=== PATIENT | female | born 1935 | race African-American/Black ===

== ENCOUNTER 2017-10-17 11:18 | Emergency (ER) | payer OTHER ==
[2017-10-17 11:24] VITALS: BP 151/61; PULSE 67; TEMP 98; BMI 25.3
--- NOTE | 2017-10-17 12:02 | PDOC ---
History of Present Illness - General Chief Complaint: Injury Stated Complaint: FALL/INJURY Time Seen by Provider: 10/17/17 12:00 Past History - Past Medical History Allergies/Adverse Reactions: Allergies Allergy/AdvReac Type Severity Reaction Status Date / Time No Known Allergies Allergy Verified 10/17/17 11:19 Home Medications: Ambulatory Orders Lisinopril [Prinivil] 40 mg PO BID 11/10/12 Acetaminophen [Tylenol Extra Strength] 500 mg PO PRN 07/23/13 Cholecalciferol (Vitamin D3) [Vitamin D] PO DAILY 07/23/13 Hydrocodone Bit/Acetaminophen [Vicodin 5-300mg Tablet] 1 - 2 tab PO Q4H PRN #40 tablet 07/24/13 Ibuprofen 800 mg PO TID #30 tablet 10/17/17 Anemia: No Asthma: No Cancer: No Cardiac Disorders: Yes (MILD HEART ATTACK 15-20YRS) CVA: No COPD: No CHF: No Dementia: No Diabetes: Yes (BORDERLINE - DIET CONTROLLED) GI Disorders: Yes (REFLUX;GAS) Disorders: No HTN: Yes Hypercholesterolemia: No Liver Disease: No Seizures: No Thyroid Disease: No Other medical history: sciatica, arithritis - Surgical History Abdominal Surgery: No Appendectomy: No Cardiac Surgery: No Cholecystectomy: No Lung Surgery: No Neurologic Surgery: Yes (BACK SURGERY APRIL 2013; DISCS REMOVED) Orthopedic Surgery: No - Immunization History Immunization Up to Date: Yes - Suicide/Smoking/Psychosocial Hx Smoking Status: No Smoking History: Never smoked Have you smoked in the past 12 months: No Number of Cigarettes Smoked Daily: 0 Information on smoking cessation initiated: No Hx Alcohol Use: No Drug/Substance Use Hx: No Substance Use Type: None Hx Substance Use Treatment: No *Physical Exam - Vital Signs Last Vital Signs Temp Pulse Resp BP Pulse Ox 98.0 F 67 18 151/61 100 10/17/17 11:20 10/17/17 11:20 10/17/17 11:20 10/17/17 11:20 10/17/17 11:20 *DC/Admit/Observation/Transfer Diagnosis at time of Disposition: Arthritis of foot, right, Fall (on) (from) other stairs and steps, initial encounter - Discharge Dispostion Disposition: HOME Condition at time of disposition: Good Admit: No - Referrals Referrals: Grabiel Waller MD [Primary Care Provider] - - Patient Instructions Printed Discharge Instructions: DI for Arthritis Additional Instructions: Your x-ray was negative today for any broken bones in your foot or ankle. Your x -ray did show some arthritis in the foot. This is probably what is causing all of your foot pain. Please take 800 mg of Motrin 3 times a day to help with her pain for one week. Do not take more than 3000 mg in 1 day. If your symptoms are not resolving within the week, please follow-up with orthopedics. A referral has been provided for you. Return to the emergency department if her pain gets worse, if your foot is weak if you have numbness and tingling, or if you have any changes in your symptoms. - Post Discharge Activity
[2017-10-17] MEDS ORDERED: IBUPROFEN 600 MG TABLET (FP) PO ONE ×2 (12:11→12:14)
== END 2017-10-17 13:47 | disposition home or self-care (01) ==
LOC: JERFT 11:18
DX: M25.571 Pain in right ankle and joints of right foot (principal); W10.8XXA Fall (on) (from) other stairs and steps, initial encounter; Y93.89 Activity, other specified; Y92.89 Other specified places as the place of occurrence of the external cause; Y99.8 Other external cause status; I10 Essential (primary) hypertension; E11.9 Type 2 diabetes mellitus without complications; K21.9 Gastro-esophageal reflux disease without esophagitis; M12.9 Arthropathy, unspecified
CPT/HCPCS: 73610-TC-RT; 73630-TC-RT; 99281-25

== ENCOUNTER 2017-12-12 10:37 | Emergency (ER) | payer OTHER ==
[2017-12-12 11:01] VITALS: BP 171/93; PULSE 65; TEMP 98.6; BMI 24.6
[2017-12-12] MEDS ORDERED: IBUPROFEN 400 MG TABLET (FP) PO ONE ×2 (13:09→13:15)
--- NOTE | 2017-12-12 13:13 | PDOC ---
History of Present Illness - General Chief Complaint: Pain Stated Complaint: FINGERS (LT/RT) PAIN Time Seen by Provider: 12/12/17 12:58 History Source: Patient Exam Limitations: No Limitations - History of Present Illness Initial Comments: 12/12/17 13:10 She came for evaluation of tingling and tenderness to all digits both hands for over a month. was at the [facility] and hands hurt too much to have any nail treatment performed today. Was concerned about fungal infectio. Denies recent exercise changes, any heavy lifting or strenuous activity, denies any trauma to either hands. Has had a carpal tunnel surgery on left wrist many years ago and suffers from osteoarthritis and tendinitis frequently. was seen by Dr. Trejo last week but did not mention the tenderness to her fingersshe felt would probably resolve on its own. Occurred: reports: just prior to arrival Severity: reports: mild, moderate Pain Location: reports: upper extremity (bilateral fingers ) Method of Injury: Yes: unknown Modifying Factors: improves with: None Loss of Consciousness: no loss of consciousness Associated Symptoms (Fall): denies symptoms Past History - Travel Traveled outside of the country in the last 30 days: No Close contact w/someone who was outside of country & ill: No - Past Medical History Allergies/Adverse Reactions: Allergies Allergy/AdvReac Type Severity Reaction Status Date / Time No Known Allergies Allergy Verified 12/12/17 10:56 Home Medications: Ambulatory Orders Lisinopril [Prinivil] 40 mg PO BID 11/10/12 Acetaminophen [Tylenol Extra Strength] 500 mg PO PRN 07/23/13 Cholecalciferol (Vitamin D3) [Vitamin D] PO DAILY 07/23/13 Hydrocodone Bit/Acetaminophen [Vicodin 5-300mg Tablet] 1 - 2 tab PO Q4H PRN #40 tablet 07/24/13 Ibuprofen 800 mg PO TID #30 tablet 10/17/17 Anemia: No Asthma: No Cancer: No Cardiac Disorders: Yes (MILD HEART ATTACK 15-20YRS) CVA: No COPD: No CHF: No Dementia: No Diabetes: Yes (BORDERLINE - DIET CONTROLLED) GI Disorders: Yes (REFLUX;GAS) Disorders: No HTN: Yes Hypercholesterolemia: No Liver Disease: No Seizures: No Thyroid Disease: No - Surgical History Abdominal Surgery: No Appendectomy: No Cardiac Surgery: No Cholecystectomy: No Lung Surgery: No Neurologic Surgery: Yes (BACK SURGERY APRIL 2013; DISCS REMOVED) Orthopedic Surgery: No - Immunization History Immunization Up to Date: Yes - Suicide/Smoking/Psychosocial Hx Smoking Status: No Smoking History: Never smoked Have you smoked in the past 12 months: No Number of Cigarettes Smoked Daily: 0 Hx Alcohol Use: No Drug/Substance Use Hx: No Substance Use Type: None Hx Substance Use Treatment: No Trauma Specific PMHX - Complaint Specific PMHX Back Injury: No Neck Injury: No Review of Systems - Review of Systems Able to Perform ROS?: Yes Is the patient limited Polish proficient: Yes Constitutional: Yes: See HPI. No: Symptoms Reported, Chills, Fever, Malaise ABD/GI: No: Symptoms Reported Integumentary: Yes: Symptoms Reported, See HPI, Other (fingertips, concerned about lines in nails) *Physical Exam - Vital Signs Last Vital Signs Temp Pulse Resp BP Pulse Ox 98.6 F 65 19 171/93 100 12/12/17 10:56 12/12/17 10:56 12/12/17 10:56 12/12/17 10:56 12/12/17 10:56 - Physical Exam General Appearance: Yes: Nourished, Appropriately Dressed. No: Apparent Distress HEENT: positive: PRIYA, Normal ENT Inspection, TMs Normal, Pharynx Normal Neck: negative: Tender Respiratory/Chest: positive: Normal Breath Sounds Extremity: positive: Normal Capillary Refill, Normal Inspection, Normal Range of Motion, Other (no nail lesions or fungal infections, noticed 1 brown vertical line to left third digit fingernail. No obvious onychomycosis or other infestations noted patient has full range of motion all fingers, capillary refill is brisk, no evidence of petechiae or ecchymoses. Neurovascular appears intact) Integumentary: positive: Warm Neurologic: positive: sagger preparer II-XII NML intact, Fully Oriented, Alert, Normal Mood/ Affect, Normal Response, Motor Strength 5/5 Progress Note - Progress Note Progress Note: Possible peripheral neuropathy progressing. Will refer to PMD for further evaluation and possible treatment/medication. *DC/Admit/Observation/Transfer Diagnosis at time of Disposition: Peripheral neuropathy - Discharge Dispostion Disposition: HOME Condition at time of disposition: Stable Admit: No - Referrals Referrals: Nas Waller MD [Primary Care Provider] - - Patient Instructions Printed Discharge Instructions: Peripheral Neuropathy Additional Instructions: Rest, ice to area on and off for 15 minutes 4-6 times a day Avoid heavy lifting or exercise until pain and swelling is resolved or until further directed Keep area highly elevated to reduce swelling Use splints/Allan wrap as directed Followup with orthopedist in one to 2 days if not improving, if significantly improved may wait one week for followup with orthopedist May use ibuprofen 2-200 mg tablets every 6 hours as needed for pain - Post Discharge Activity
== END 2017-12-12 13:20 | disposition home or self-care (01) ==
LOC: JERFT 10:37
DX: G62.89 Other specified polyneuropathies (principal); I10 Essential (primary) hypertension; E11.9 Type 2 diabetes mellitus without complications; K21.9 Gastro-esophageal reflux disease without esophagitis; I25.2 Old myocardial infarction
CPT/HCPCS: 99281-25

== ENCOUNTER 2021-05-14 04:41 | Day surgery (SDC) | payer OTHER ==
[2021-05-13 13:45] VITALS: BMI 23.0
[2021-05-14] MEDS ORDERED: LIDOCAINE HCL/PF 1% SDV 5ML VIAL ONE ×2 (07:25→07:46)
[2021-05-14] MEDS ORDERED: BUPIVACAINE HCL/PF 0.75% 10 ML VIAL ONE (07:26)
[2021-05-14] MEDS ORDERED: IOHEXOL 180 MG/1 ML ML IJ ONE ×2 (12:34)
[2021-05-14] MEDS ORDERED: LIDOCAINE HCL 1% PRESERVATIVE FREE - 30ML VIAL IJ ONE ×2 (12:34)
[2021-05-14] MEDS ORDERED: BUPIVACAINE HCL/PF 0.75% 10 ML VIAL NR ONE ×2 (12:34)
[2021-05-14 13:14] VITALS: BP 145/67; PULSE 59
[2021-05-14 14:25] VITALS: TEMP 97.2
== END 2021-05-14 14:00 | disposition home or self-care (01) ==
LOC: JASU-SURG 04:41
PROVIDERS: ATTEND Pain Medicine Pain Medicine
PROC: BR16YZZ Fluoroscopy of Lumbar Facet Joint(s) using Other Contrast (ICD-10-PCS; 2021-05-14)
PROC: 3E0T3BZ Introduction of Anesthetic Agent into Peripheral Nerves and Plexi, Percutaneous Approach (ICD-10-PCS; principal; 2021-05-14 11:45)
DX: M47.816 Spondylosis without myelopathy or radiculopathy, lumbar region (principal)
CPT/HCPCS: 76000-TC-FY